=== PATIENT | male | born 1940 | race Caucasian/White ===

== ENCOUNTER 2018-09-24 08:14 | Inpatient (IN) | payer MEDICARE ==
[~2018-09-24] VITALS: Ht 170.2 cm; Wt 60.9 kg
[2018-09-24] VITALS (9 sets, daily range): BP systolic 103–126; BP diastolic 46–63; PULSE 31–75; TEMP 97.5–98
[~2018-09-24 08:14] MED LIST: ALEVE 220MG220 MG PO; ASPIRIN E.C. 8181 MG PO; CORDARONE200 MG/TAB PO; DILANTIN 100MG100 MG PO; ELIQUIS 5MG PO; FLOMAX 0.40.4 MG/CAP PO; FLOMAX0.4 MG PO; GLUCOPHAGE1000 MG PO; HCTZ 25MG TAB25 MG PO; HCTZ 25MG25 MG PO; KEPPRA 500MG500 MG PO; LIPITOR 40MG TA40 MG PO; LIPITOR40 MG PO; LOTREL 10 MG-201 CAP PO; METFORMIN1000 MG PO; NORCO 325 MG-51 TAB PO; PREDNISONE10 MG PO; PROSCAR PO; TOPROL XL 25MG25 MG PO
[2018-09-24 08:51] LABS: BASO # 0.1 (0.0-0.2); BASO % 0.4 % (0.0-2.0); EOS % 0.2 % (0-4.0); GRAN % 79.8 % (42.2-75.2); HEMATOCRIT 40.5 % (42.0-52.0); HEMOGLOBIN 13.8 g/dl (13.5-18.0); LYMPH # 1.3 (1.2-3.4); LYMPH % 10.4 % (20.0-51.0); MEAN CELL VOLUME 88 fl (80.0-100.0); MEAN CORPUSCULAR HEMOGLOBIN 30 pg (27.0-31.0); MEAN CORPUSCULAR HGB CONC 34 g/dl (33.0-37.0); MEAN PLATELET VOLUME 10.6 fl (7.4-10.4); MONO # 1.1 (0.1-0.6); MONO % 8.8 % (1.7-9.3); PLATELET COUNT 230 K/mm3 (130-400); RED BLOOD COUNT 4.63 M/mm3 (4.20-5.60); REDCELL DISTRIBUTION WIDTH-CV 15.3 % (11.5-14.5)
[2018-09-24] MEDS ORDERED: TOPROL XL 25MG25 MG PO (08:54)
[2018-09-24 08:56] LABS: ALBUMIN 4.1 gm/dL (3.5-5.0); BILIRUBIN,TOTAL 0.5 mg/dL (0.0-1.0); CALCIUM 9.5 mg/dL (8.4-10.2); CREATININE, serum 1.37 (0.66-1.25); MAGNESIUM 1.9 mg/dL (1.6-2.3); POTASSIUM 5.5 mmol/L (3.4-5.0); TOTAL PROTEIN 6.9 gm/dL (6.4-8.2)
[2018-09-24] MEDS ORDERED: MOTRIN 200200 MG/TAB PO (08:56)
[2018-09-24 09:14] LABS: TROPONIN-I 0.128 ng/mL (0.000-0.035)
--- NOTE | 2018-09-24 09:48 | NUR ---
ALL MEDICATIONS GIVEN VORB WITH MD. SEE MERGE FOR ALL MEDICATION ADMIN TIMES. SEE MERGE FOR ALL RASS ASSESSMENTS DURING AND POST PROCEDURE. ANTIBIOTICS GIVEN PRIOR TO PROCEDURE, REFER TO MAR.
--- NOTE | 2018-09-24 11:26 | NUR ---
Patient to room 351 from laboratory geneticist. Patient is A&O, drowsy, but easily awakened. Nurse oriented patient and family to room, call light and bed. Patient and family verbalized an understainding. VS stable. IV CDI. Post op VS being monitored. Left upper chest site CDI, left arm in sling. PAtient aware of not moving left arm. No further needs expressed from patient. Call light within reach
[2018-09-24] MEDS ORDERED: B SHOT (12:33)
[2018-09-24 16:48] LABS: INR 1.1 (0.8-3.0); PROTHROMBIN TIME 12.4 SECONDS (9.7-12.8)
[2018-09-24 16:51] LABS: PARTIAL THROMBOPLASTIN TIME 35.1 SECONDS (26.0-37.0)
--- NOTE | 2018-09-24 18:22 | NUR ---
Patient sitting up in bed, at the bedside. A&O, VS stable. 1L NC O2. IV CDI, fluids infusing. Left arm in sling, incision left upper chest CDI. Urinal at the bedside. Patiet instructed to call nursing staff for assistance as needed. Call light within reach
--- NOTE | 2018-09-24 20:05 | NUR ---
Shift assessment complete. Pt resting in bed, awake, a&o, cooperative c cares. Pt denies pain or other c/o at this time. Pacemaker incision site noted to L upper chest s reddness/drainage/edema; gauze/paper tape dressing C/D/I. INT patent. Tele in place. Pt denies needs. Call light in reach, at bedside. Will monitor.
[2018-09-25] VITALS (11 sets, daily range): BP systolic 87–132; BP diastolic 49–74; PULSE 62–144; TEMP 98.1–98.4
--- NOTE | 2018-09-25 04:11 | NUR ---
Noted pt's HR to be 136 per tele monitor. Called telecasting engineer to cofirm, suspected a-flutter c RVR. Pt asymptomatic et VS WNL. Deisy MACHUCAN notified, instructed to call . EKG confirmed a-flutter/tach c RVR, HR 136. notifed, orders to resume home Toprol. This nurse when in to explain POC c pt et , remembered possbility of NM stress test today, pt agreed. Again, notified , order to hold Toprol et monitor pt closely.
--- NOTE | 2018-09-25 06:00 | NUR ---
Pt resting in bed, condition unchanged. Pt has rested well this shift c very few needs. Continues to be tachycardic c HR 136 per tele. Remains asymptomatic. Will report to day shift.
[2018-09-25 06:06] LABS: BASO # 0.1 (0.0-0.2); BASO % 0.5 % (0.0-2.0); EOS % 0.3 % (0-4.0); GRAN # 7.8 (1.4-6.5); GRAN % 75.7 % (42.2-75.2); HEMOGLOBIN 12.5 g/dl (13.5-18.0); LYMPH % 10.1 % (20.0-51.0); MEAN CELL VOLUME 87 fl (80.0-100.0); MEAN CORPUSCULAR HEMOGLOBIN 30 pg (27.0-31.0); MEAN CORPUSCULAR HGB CONC 34 g/dl (33.0-37.0); MEAN PLATELET VOLUME 10.9 fl (7.4-10.4); MONO # 1.3 (0.1-0.6); PLATELET COUNT 173 K/mm3 (130-400); RED BLOOD COUNT 4.24 M/mm3 (4.20-5.60); REDCELL DISTRIBUTION WIDTH-CV 15.2 % (11.5-14.5)
[2018-09-25 06:08] LABS: HEMATOCRIT 36.9 % (42.0-52.0)
[2018-09-25 06:19] LABS: CREATININE, serum 0.62 (0.66-1.25); POTASSIUM 3.7 mmol/L (3.4-5.0)
--- NOTE | 2018-09-25 07:58 | NUR ---
Pt assessment complete. Pt had just returned to bed from the bathroom, tele reporting patient's HR >140. Pt denies any chest pain, palpitations, dizziness or SOB but states he can tell when his heart rate is high but is unable to explain how he feels. Pt encouraged to stay in bed while HR is high and while Toprol is on hold, pt in agreeance. Pt denies any pain, L chest pacer incision is CDI. Pt's LUE is in the sling. No further concerns this am. Pt to remain NPO until stress test is complete. Call light within reach.
--- NOTE | 2018-09-25 10:07 | NUR ---
Pt left for cardioversion at this time
--- NOTE | 2018-09-25 11:56 | NUR ---
Initial visit; Patient and his thanked Industrial Paramedic for looking in on him and offering God's blessings. Patient is in hopes of being discharged soon.
--- NOTE | 2018-09-25 12:00 | NUR ---
Attempted to give patient first dose of Sotalol, medication and reason explained to patient. Pt has concerns regarding new medication and staying in the hospital for several more days as well as insurance coverage. Attempted to explain situation to the patient, JOEL Herrera and SW notified.
--- NOTE | 2018-09-25 13:40 | NUR ---
SW met with patient and about discharge planning. Patient lives independently at home with his . Patient's PCP is Dr Zuniga and he obtains prescriptions from [facility] or [facility]. Patient does not use any DME or home health services. Patient does have a DPOA and he reports Dr Zuniga should have a copy. SW requested a copy from PCP's office. Patient and were also concerned about insurance covering his hospitalization. SW spoke to [facility] and she reports patient meet criteria for inpatient status and his insurance should cover everything. TARAN relayed this information to patient and . SW does not anticipate any discharge needs.
--- NOTE | 2018-09-25 18:57 | NUR ---
Pt had uneventful day. He denied any pain. Appears to maintain NSR on tele with controlled HR. Site to L chest CDI, gauze removed earlier today. Tolerating diet without issues. No needs at this time. Report given to RENE Del Toro.
--- NOTE | 2018-09-26 00:01 | NUR ---
Alert and oriented, and able to make needs known. Denies having pain and discomfort. Sling to left arm. Pacemaker site to left chest is without redness, warmth, swelling, drainage, and pain. Area is open to air. Edges well approximated, and scabbing present. Peripheral INT to left and right forearm. Sites flushed, and are without redness, warmth, swelling, and pain. Voices no needs or concerns. at bedside. Resting in bed with eyes closed at this time. Call light is within reach.
[2018-09-26 04:03] VITALS: BP 110/58; PULSE 62; TEMP 98.3
--- NOTE | 2018-09-26 05:10 | NUR ---
Patient has been resting in bed with eyes closed most of the night. Did complain of some pain to leg around 0100, and was given PRN APAP as requested, which was effective. Continues to wear sling to left arm. Denies pain and discomfort to left chest and left arm. Voices no needs or concerns. Resting in bed with eyes closed at this time. Call light is within reach.
[2018-09-26 07:34] LABS: BASO # 0.1 (0.0-0.2); BASO % 0.7 % (0.0-2.0); EOS # 0.1 (0.0-0.7); EOS % 0.7 % (0-4.0); GRAN # 6.7 (1.4-6.5); GRAN % 74.9 % (42.2-75.2); LYMPH % 11.6 % (20.0-51.0); MEAN CELL VOLUME 87 fl (80.0-100.0); MEAN CORPUSCULAR HEMOGLOBIN 30 pg (27.0-31.0); MEAN CORPUSCULAR HGB CONC 34 g/dl (33.0-37.0); MEAN PLATELET VOLUME 10.4 fl (7.4-10.4); MONO % 11.7 % (1.7-9.3); PLATELET COUNT 153 K/mm3 (130-400); RED BLOOD COUNT 4.05 M/mm3 (4.20-5.60); REDCELL DISTRIBUTION WIDTH-CV 14.9 % (11.5-14.5)
[2018-09-26 07:38] LABS: HEMATOCRIT 35.2 % (42.0-52.0)
[2018-09-26 07:46] VITALS: BP 131/57; PULSE 61; TEMP 97.7
[2018-09-26 07:49] LABS: CALCIUM 8.8 mg/dL (8.4-10.2); CREATININE, serum 0.47 (0.66-1.25); POTASSIUM 3.5 mmol/L (3.4-5.0)
--- NOTE | 2018-09-26 08:15 | NUR ---
Assessment completed, alert/oriented, vital signs stable, denies pain or discomfort, pacer site looks good/ incision intact/ no hematoma or bleeidng noted, left arm in sling, heart paced on tele, lungs CTA/ no reps.dififculty, resume full dose beta georges, he is sititng up in bed waiting for his breakfast, present at bedside, they deny other needs at this time
[2018-09-26 08:19] LABS: TSH w REFLEX 1.69 uIU/mL (0.465-4.680)
[2018-09-26] MEDS ORDERED: CEPHALEXIN500 M1 PO (10:15)
[2018-09-26 12:08] VITALS: BP 129/62; PULSE 80; TEMP 98
[2018-09-26 12:12] VITALS: BP 101/60; PULSE 109; TEMP 98.6
--- NOTE | 2018-09-26 14:21 | NUR ---
Discharge instructions reviewed, isntructed to follow up with Cardiology and PCP as we have scheduled for him, discussed post pacemaker activty and bating guidlines and restrictions, instructed to keep incision clean and dry and to keep left arm sling in place, discussed new meds and med changes/ script for keflex sent to [facility] pharmacy, IV and tele removed, he is leaving with his , I personally escorted them out the door
== END 2018-09-26 14:24 | disposition home or self-care (01) | DRG 242 ==
LOC: COL.ER 08:14 → MEDICAL 09:28
PROVIDERS: Emergency Medicine; Physician Assistant; ADMIT Family Medicine
PROC: 0JH606Z Insertion of Pacemaker, Dual Chamber into Chest Subcutaneous Tissue and Fascia, Open Approach (ICD-10-PCS; principal; 2018-09-24)
PROC: 02H63JZ Insertion of Pacemaker Lead into Right Atrium, Percutaneous Approach (ICD-10-PCS; 2018-09-24)
PROC: 02HK3JZ Insertion of Pacemaker Lead into Right Ventricle, Percutaneous Approach (ICD-10-PCS; 2018-09-24)
DX: I44.2 Atrioventricular block, complete (principal); I21.A1 Myocardial infarction type 2; N17.9 Acute kidney failure, unspecified; I50.32 Chronic diastolic (congestive) heart failure; I48.92 Unspecified atrial flutter; I95.9 Hypotension, unspecified; E87.5 Hyperkalemia; G40.909 Epilepsy, unspecified, not intractable, without status epilepticus; Z95.3 Presence of xenogenic heart valve; E11.9 Type 2 diabetes mellitus without complications
CPT/HCPCS: 99223-AI; 99232-AI; 99239; C1769; C1894; C1898; C1900; C2621; J0610; J0690; J1265; J1644; J1815; J2250; J2405; J2704; J3010; J7030

== ENCOUNTER → 2019-07-14 | Outpatient (CLI) | payer MEDICARE, OTHER ==
[~2019-07-14] MED LIST changes: +B SHOT; +CEPHALEXIN500 M1 PO; +MOTRIN 200200 MG/TAB PO
[2019-07-14 18:04] LABS: SYNOVIAL FL. MONONUCLEAR 9.7 % (0-75); SYNOVIAL FLUID RBC 8000 /mm3 (0-0); SYNOVIAL FLUID WBC 36659 /mm3 (200-600)
[2019-07-14 19:39] LABS: SYNOVIAL FLUID APPEARANCE CLOUDY; SYNOVIAL FLUID COLOR YELLOW
== END ==
LOC: COL.LAB 16:05 → ZCOL.LAB 16:05
PROVIDERS: Physician Assistant
DX: M25.469 Effusion, unspecified knee (principal); M25.562 Pain in left knee

== ENCOUNTER 2019-10-06 06:59 | Day surgery (SDC) | payer MEDICARE ==
[~2019-10-06] VITALS: Ht 170.2 cm; Wt 58.4 kg
[2019-10-06] VITALS (7 sets, daily range): BP systolic 114–121; BP diastolic 62–72; PULSE 60–72; TEMP 97.7
[2019-10-06 07:53] LABS: HEMATOCRIT 34.6 % (42.0-52.0); HEMOGLOBIN 10.9 g/dl (13.5-18.0); MEAN CELL VOLUME 77 fl (80.0-100.0); MEAN CORPUSCULAR HEMOGLOBIN 24 pg (27.0-31.0); MEAN CORPUSCULAR HGB CONC 32 g/dl (33.0-37.0); MEAN PLATELET VOLUME 8.7 fl (7.4-10.4); PLATELET COUNT 287 K/mm3 (130-400); RED BLOOD COUNT 4.51 M/mm3 (4.20-5.60); REDCELL DISTRIBUTION WIDTH-CV 17.2 % (11.5-14.5)
[2019-10-06] MEDS ORDERED: LOTREL 10 MG-201 CAP PO (07:54)
[2019-10-06] MEDS ORDERED: COUMADIN4 MG PO (07:56)
[2019-10-06] MEDS ORDERED: COUMADIN 5MG5 MG/TAB PO (07:57)
[2019-10-06] MEDS ORDERED: LASIX 40MG TABL40 MG PO (07:58)
[2019-10-06 08:01] LABS: INR 1.2 (0.8-3.0); PROTHROMBIN TIME 13.3 SECONDS (9.7-12.8)
[2019-10-06 08:04] LABS: CALCIUM 8.8 mg/dL (8.4-10.2); CREATININE, serum 0.59 (0.66-1.25); POTASSIUM 4.5 mmol/L (3.4-5.0)
--- NOTE | 2019-10-06 09:29 | NUR ---
Resting in bed, denies pain and needs at this time
--- NOTE | 2019-10-06 11:10 | NUR ---
INT discontinued intact. Discharge instructions given. Transferred to private car by [place]
== END 2019-10-06 11:15 | disposition home or self-care (01) ==
LOC: COL.CAR 06:59
PROVIDERS: Internal Medicine Cardiovascular Disease
DX: I35.2 Nonrheumatic aortic (valve) stenosis with insufficiency (principal); Z86.79 Personal history of other diseases of the circulatory system; I48.91 Unspecified atrial fibrillation; E11.9 Type 2 diabetes mellitus without complications; I27.20 Pulmonary hypertension, unspecified; I25.2 Old myocardial infarction; I10 Essential (primary) hypertension; I73.9 Peripheral vascular disease, unspecified; G40.909 Epilepsy, unspecified, not intractable, without status epilepticus; Z95.0 Presence of cardiac pacemaker; G89.29 Other chronic pain; M25.552 Pain in left hip; N40.0 Benign prostatic hyperplasia without lower urinary tract symptoms; F17.210 Nicotine dependence, cigarettes, uncomplicated; J44.9 Chronic obstructive pulmonary disease, unspecified; M54.30 Sciatica, unspecified side; D64.9 Anemia, unspecified; Z79.899 Other long term (current) drug therapy; Z86.73 Personal history of transient ischemic attack (TIA), and cerebral infarction without residual deficits; Z95.2 Presence of prosthetic heart valve; Z79.01 Long term (current) use of anticoagulants; Z79.84 Long term (current) use of oral hypoglycemic drugs
CPT/HCPCS: J2704

== ENCOUNTER → 2020-07-12 | Outpatient (CLI) | payer MEDICARE ==
[~2020-07-12] MED LIST changes: +COUMADIN 5MG5 MG/TAB PO; +COUMADIN4 MG PO; +LASIX 40MG TABL40 MG PO
== END ==
LOC: COL.RAD 14:06
DX: M48.061 Spinal stenosis, lumbar region without neurogenic claudication (principal); M51.36 Other intervertebral disc degeneration, lumbar region

== ENCOUNTER 2021-03-05 08:07 | Emergency (ER) | payer MEDICARE ==
[~2021-03-05] VITALS: Ht 182.9 cm; Wt 77.3 kg
--- NOTE | 2021-03-05 09:06 | NUR ---
SW received [employer] service: Patient identified as Sam Adams, Asia Adams. contact information is C or h. indicated that patients doctor is Dr. Vazquez and Dr. Sainz. reports that the patient has heart issues. reports that patient hit his head on a partition wall. Address [id number] [place] [address], [facility]. Patient had pacemaker. produced DPOA ppw, SW placed copy on chart. 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 reports that the home is [facility] in [place], [place] 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 denes having any other concerns at this time. Educated on supports available to them. N-F
== END 2021-03-05 14:20 | disposition expired ==
LOC: COL.ER
DX: I46.9 Cardiac arrest, cause unspecified (principal); J44.9 Chronic obstructive pulmonary disease, unspecified; G40.909 Epilepsy, unspecified, not intractable, without status epilepticus; F17.200 Nicotine dependence, unspecified, uncomplicated; Z86.79 Personal history of other diseases of the circulatory system; Z95.0 Presence of cardiac pacemaker; Z79.01 Long term (current) use of anticoagulants; Z79.899 Other long term (current) drug therapy
CPT/HCPCS: J0171